=== PATIENT | male | born 1970 | race Caucasian/White ===

== ENCOUNTER 2016-12-01 17:51 | Inpatient (IN) | payer MEDICAID ==
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
--- NOTE | ~2016-12-01 | PN ---
Unit #: [id number] #: [id number] Patient: EMELYN LIZ [id number] [facility] [address] [place] [address] [id number] I MR#: [id number] NAME: EMELYN LIZ. ROOM: P212 Age: 46 Sex: M Admission Date: 12/01/2016 : 1970 Attending Physician: Keara Mullins M.D. Admitting Physician: Keara Mullins M.D. Primary Care Physician: Generic Doctor Not In System [facility] PROGRESS NOTES DATE OF SERVICE: 12/03/2016 SUBJECTIVE Mr. Liz is a 46-year-old white male with substance abuse and mood disorder, who was seen today and chart was reviewed, and case was discussed with the staff. He has been anxious, withdrawn, and rather seclusive to himself. Meanwhile, he has been cooperative with treatment recommendation and has been taking the medications and tolerating them fairly well with no reported side effects. MENTAL STATUS EXAMINATION Young white male who was casually dressed with fair personal hygiene and appears to be in no acute distress or discomfort. He was awake and alert on interaction with intact orientation. His mood was anxious with a congruent affect. His speech is slow and goal directed. He denies any suicidal or homicidal ideation, and also denies any auditory or visual hallucinations. His insight and judgment remain slightly impaired. TREATMENT PLAN 1. We will continue him on his current medications and treatment protocol. We will monitor his response and make further adjustments as needed. 2. We will continue to follow up. Dictated by... Gilbert Olivas/liliana TD: 12/05/2016 07:30 JOB #: [id number] Unit #: [id number] #: [id number] Patient: EMELYN LIZ [facility] PROGRESS NOTES Page 1 of 1 X Keara Mullins MD PROGRESS NOTE
--- NOTE | ~2016-12-01 | HP ---
Unit #: [id number] #: [id number] Patient: EMELYN LIZ [id number] [place] [address] [id number] I MR#: [id number] NAME: EMELYN LIZ. ROOM: P212 Age: 46 Sex: M Admission Date: 12/01/2016 : 1970 Attending Physician: Keara Mullins M.D. Admitting Physician: Keara Mullins M.D. Primary Care Physician: Generic Doctor Not In System HISTORY AND PHYSICAL HISTORY OF PRESENT ILLNESS Emelyn is a 46-year-old male admitted on 12/01/[address] [place] [address] for detox from alcohol. PAST MEDICAL HISTORY None. PAST SURGICAL HISTORY Inguinal hernia repair. ALLERGIES No known drug allergies. SOCIAL HISTORY Smokes half pack of cigarettes daily. Drinks 1 pint of alcohol daily. No illegal drug use. He is currently single and living with his mother. FAMILY HISTORY Noncontributory. REVIEW OF SYSTEMS CONSTITUTIONAL: No fever or chills. HEENT: Denies any sore throat, ear pain or runny nose. CARDIOVASCULAR: Denies chest pain, irregular heart rhythm or palpitations. CHEST: Denies shortness of breath or cough. No hemoptysis. GASTROINTESTINAL: Denies nausea, vomiting, diarrhea or chronic constipation. ENDOCRINE: Denies history of increased thirst or urination. No recent significant weight loss or gain. GENITOURINARY: Denies dysuria, frequency, or hematuria. SKIN: Denies any rashes. HEMATOLOGIC: Denies history of increased bleeding or bruising. MUSCULOSKELETAL: Denies any hot, swollen joints. No generalized muscle pain. NEUROLOGIC: Denies problems with vision or speech. No frequent, severe headaches. No numbness, tingling or weakness in any extremities. Denies loss of bladder or bowel control. CURRENT MEDICATIONS Metoprolol. PHYSICAL EXAMINATION GENERAL: Alert, oriented, in no acute distress. Unit #: [id number] #: [id number] Patient: EMELYN LIZ VITAL SIGNS: Blood pressure 145/100, heart rate 89, temperature 98.4. HEIGHT: 6 feet 0. WEIGHT: 142 pounds. SKIN: Warm and dry without rash or lesion. HEENT: Normocephalic. TMs not viewed. Oral and nasal passages clear. Conjunctivae clear. PERRLA. EOMs intact. NECK: Supple without lymphadenopathy or thyromegaly. HEART: Regular rate and rhythm without murmur. LUNGS: Clear. ABDOMEN: Soft, nontender, without masses or hepatosplenomegaly. : Not done. EXTREMITIES: No evidence of cyanosis, clubbing or edema. Moves all without focal deficit. NEUROLOGICAL: Grossly within normal limits. Cranial Nerves: II: Visual calvert are intact. III, IV AND : Extraocular movements are intact. Pupils are equal, round and reactive to light. V: Facial sensation is grossly normal. VII: Facial movements and expression are normal. VIII: Auditory acuity grossly intact. IX, X: Uvula is midline. Phonation is normal. XI: Patient shrugs shoulders and turns head normally. XII: Tongue protrudes in the midline. Sensory and Motor Function: Sensory and motor sensation is grossly normal. Motor: moves all extremities well. Coordination: Gait is normal. Deep Tendon Reflexes: Intact. IMPRESSION Psychiatric admission. RECOMMENDATIONS PSYCHIATRIC: Per psychiatrist. MEDICAL: No contraindications to participate in facility's activities. MEDICAL PROGNOSIS Good. MEDICAL CONDITION Stable. Dictated by... Chikis Roman/edith TD: 12/02/2016 18:46 JOB #: [id number] Unit #: [id number] #: [id number] Patient: EMELYN LIZ HISTORY AND PHYSICAL Page 1 of 1 X MISTY ROUSE APRN HISTORY AND PHYSICAL
--- NOTE | ~2016-12-01 | DS ---
Unit #: [id number] #: [id number] Patient: EMELYN LIZ [id number] [facility] [address] [place] [address] [id number] I MR#: [id number] NAME: EMELYN LIZ. ROOM: P212 Age: 46 Sex: M Admission Date: 12/01/2016 : 1970 Discharge Date: 12/05/2016 Attending Physician: Keara Mullins M.D. Primary Care Physician: Generic Doctor Not In System DISCHARGE SUMMARY IDENTIFYING DATA Mr. Liz is a 46-year-old white male, who is a resident of [place], [place], and was transferred to us from Emergency Psychiatric Services at [facility]. DISCHARGE DIAGNOSES Psychiatric: Major depressive disorder, recurrent, moderate, without psychotic features; alcohol dependence, moderate and acute withdrawals. Medical: Hypertension. Stressors: Moderate psychosocial stressors. HISTORY OF PRESENT ILLNESS Please see initial psychiatric evaluation for details. PAST PSYCHIATRIC HISTORY Please see initial psychiatric evaluation for details. PAST MEDICAL HISTORY Please see initial psychiatric evaluation for details. HOSPITAL COURSE The patient [facility] and was oriented to the hospital environment. Routine p.r.n. medications were initiated and he was started on the detox protocol and was closely monitored. He was taking medications regularly and was tolerating them fairly well and was able to show a decent and therapeutic response as he was able to come out of the detox without any complications and was willing to continue treatment on an outpatient basis and as such, it was decided that he will be discharged home and will continue treatment on an outpatient basis. DISCHARGE MEDICATIONS None. DISCHARGE CONDITION Stable. PROGNOSIS Fair. Dictated by... Keara Mullins M.D. IAA/modl Unit #: [id number] #: [id number] Patient: EMELYN LIZ TD: 12/05/2016 07:22 JOB #: [id number] DISCHARGE SUMMARY Page 1 of 1 X Keara Mullins MD X DISCHARGE SUMMARY
--- NOTE | ~2016-12-01 | PN ---
Unit #: [id number] #: [id number] Patient: EMELYN LIZ [id number] [facility] [address] [place] [address] [id number] MR#: [id number] NAME: EMELYN LIZ. ROOM: P212 Age: 46 Sex: M Admission Date: 12/01/2016 : 1970 Attending Physician: Keara Mullins M.D. Admitting Physician: Keara Mullins M.D. Primary Care Physician: Generic Doctor Not In System [facility] PROGRESS NOTES DATE 12/02/2016 DISCUSSION Mr. Liz is a 46-year-old, white male with mood disorder and substance abuse who was seen today and chart was reviewed and case was discussed with the staff. He has anxious, withdrawn and rather seclusive to himself. Meanwhile, he has been cooperative with treatment recommendation and has been taking medication and tolerating them fairly well with no reported side effects. MENTAL STATUS EXAM Middle-aged white male who was casually dressed with fair personal hygiene, appears to be in no acute distress or discomfort. He was awake and alert on interaction with intact orientation. His mood was anxious with congruent affect. He denies any suicidal or homicidal ideation. His insight and judgement remains slightly impaired. TREATMENT PLAN We will continue him on his current treatment protocol. We will monitor his response and make further adjustments as needed. Dictated by... Gilbert Olivas/helio TD: 12/04/2016 04:13 JOB #: [id number] [facility] PROGRESS NOTES Page 1 of 1 X Keara Mullins MD PROGRESS NOTE
[2016-12-02 12:14] LABS: THYROID STIMULATING HORMONE 1.35 uIU/ml (0.34-5.60)
[2016-12-02 12:23] LABS: FREE THYROXIN (T4) 0.9 ng/dL (0.58-1.64)
[2016-12-03 11:33] LABS: URINE APPEARANCE CLEAR; URINE BLOOD NEG (NEG); URINE COLOR DK YELLOW; URINE GLUCOSE NEG (NEG); URINE KETONE TRACE (NEG); URINE LEUKOCYTE ESTERASE NEG (NEG); URINE NITRATE NEG (NEG); URINE PH 7.5 (5-8); URINE PROTEIN TRACE (NEG); URINE SPECIFIC GRAVITY 1.028 (1.003-1.035)
[2016-12-03 11:57] LABS: URINE BILIRUBIN NEG (NEG)
== END 2016-12-05 10:00 | disposition home or self-care (01) | DRG 885 ==
LOC: P2S 17:51
PROVIDERS: Psychiatry & Neurology Psychiatry
PROC: HZ2ZZZZ Detoxification Services for Substance Abuse Treatment (ICD-10-PCS; principal; 2016-12-01)
DX: F33.1 Major depressive disorder, recurrent, moderate (principal); I10 Essential (primary) hypertension; F10.239 Alcohol dependence with withdrawal, unspecified; F17.200 Nicotine dependence, unspecified, uncomplicated
CPT/HCPCS: 81003; 84439; 84443; 86592